=== PATIENT | male | born 1960 | race Caucasian/White ===

== ENCOUNTER 2016-09-04 10:00 | Emergency (ER) | payer MEDICAID ==
[2016-09-04] MEDS ORDERED: OPTIRAY 350 100 ML VIAL HMH IV ONE (10:01)
[2016-09-04] MEDS ORDERED: SODIUM CHLORIDE 0.9% 1,000 ML ONE (11:41)
[2016-09-04] MEDS ORDERED: ALU/MAG/SIM 30 ML UDC ONE (11:41)
[2016-09-04] MEDS ORDERED: PANTOPRAZOLE 40 MG VIAL IV ONE (11:41)
[2016-09-04] MEDS ORDERED: LIDOCAINE 2% VISC 15 ML UDC ONE (11:41)
[2016-09-04] MEDS ORDERED: ONDANSETRON 4 MG VIAL ONE (12:16)
[2016-09-04] MEDS ORDERED: MORPHINE 4 MG/ML SYR ONE (14:42)
== END 2016-09-04 16:20 | disposition home or self-care (01) ==
LOC: ER 10:00
DX: K25.3 Acute gastric ulcer without hemorrhage or perforation (principal); R10.9 Unspecified abdominal pain; Z79.82 Long term (current) use of aspirin; Z79.84 Long term (current) use of oral hypoglycemic drugs; F17.210 Nicotine dependence, cigarettes, uncomplicated
CPT/HCPCS: 36415; 71020; 71260; 74160; 76705; 80053; 81003; 82553; 83690; 84484; 85025; 86677; 93005; 96361; 96365; 96366; 96375